=== PATIENT | female | born 1955 | race African-American/Black ===

== ENCOUNTER 2017-12-01 04:27 | Inpatient (IN) ==
[~2017-12-01 04:27] MED LIST: VANCOMYCIN INJ 1,000 MG in SODIUM CHLORIDE 0.9% 250 ML IV ONE; ceFAZolin 1,000 MG in SYRINGE 1 EACH IV ONE
[2017-12-01] MEDS ORDERED: ceFAZolin 1,000 MG in SYRINGE 1 EACH IV ONE (06:00)
[2017-12-01] MEDS ORDERED: VANCOMYCIN INJ 1,000 MG in SODIUM CHLORIDE 0.9% 250 ML IV ONE (06:00)
[2017-12-01] MEDS ORDERED: GABAPENTIN 400 MG CAPSULE PO ONE (06:21)
[2017-12-01] MEDS ORDERED: ACETAMINOPHEN 500 MG TABLET PO ONE (06:21)
[2017-12-01] MEDS ORDERED: LACTATED RINGERS 1,000 ML IV SCH (06:30)
[2017-12-01] MEDS ORDERED: GABAPENTIN 400 MG CAPSULE ONE (07:16)
[2017-12-01] MEDS ORDERED: VANCOMYCIN 1,000 MG VIAL ONE (07:16)
[2017-12-01] MEDS ORDERED: ACETAMINOPHEN 500 MG TABLET ONE (07:16)
[2017-12-01] MEDS ORDERED: ceFAZolin 1,000 MG VIAL ONE (07:16)
[2017-12-01] MEDS ORDERED: ROPIVACAINE 0.5% 30 ML VIAL ONE (07:20)
[2017-12-01] MEDS ORDERED: MIDAZOLAM 2 MG/2 ML VIAL ONE ×2 (07:20→10:15)
[2017-12-01] MEDS ORDERED: BUPIVACAINE SPINAL 0.75% 2 ML AMP SPINAL ONE (07:58)
[2017-12-01] MEDS ORDERED: TRANEXAMIC ACID 1,000 MG/10 ML VIAL ONE (08:46)
[2017-12-01] MEDS ORDERED: TEMAZEPAM 7.5 MG CAPSULE PO PRN (09:58)
[2017-12-01] MEDS ORDERED: MAGNESIUM HYDROXIDE SUSP 30 ML UDCUP PO PRN (09:58)
[2017-12-01] MEDS ORDERED: PROMETHAZINE 25 MG/1 ML VIAL IM PRN (09:58)
[2017-12-01] MEDS ORDERED: MORPHINE 4 MG/1 ML VIAL IV PRN (09:58)
[2017-12-01] MEDS ORDERED: LACTULOSE 20 GM/30 ML UDCUP PO PRN (09:58)
[2017-12-01] MEDS ORDERED: NALOXONE 0.4 MG/ML VIAL IV PRN (09:58)
[2017-12-01] MEDS ORDERED: diphenhydrAMINE CAP 25 MG CAPSULE PO PRN (09:58)
[2017-12-01] MEDS ORDERED: ONDANSETRON 4 MG/2 ML VIAL IV PRN (09:58)
[2017-12-01] MEDS ORDERED: BISACODYL 10 MG SUPP RECTAL PRN (09:58)
[2017-12-01] MEDS ORDERED: fentaNYL 100 MCG/2 ML VIAL ONE (10:15)
[2017-12-01] MEDS ORDERED: PHENYLEPHRINE 1 MG/10 ML SYRINGE IV ONE (10:16)
[2017-12-01] MEDS ORDERED: PROPOFOL 500 MG/50 ML BOTTLE IV ONE (10:16)
[2017-12-01] MEDS ORDERED: MORPHINE PCA 30 MG/30 ML SYRINGE IV ONE (10:22)
[2017-12-01] MEDS: MORPHINE PCA 30 MG/30 ML SYRINGE IV SCH (10:24)
[2017-12-01 11:43] LABS: HIV Antigen/Antibody Result Reactive (Nonreactive)
[2017-12-01] MEDS: LACTATED RINGERS 1,000 ML IV SCH (13:47)
[2017-12-01] MEDS: ceFAZolin 1,000 MG in SYRINGE 1 EACH IV SCH (16:13)
[2017-12-01] MEDS: DOCUSATE SODIUM 100 MG CAPSULE PO SCH (20:53)
[2017-12-01] MEDS: FONDAPARINUX 2.5 MG/0.5 ML SYRINGE SUBCUT SCH (20:54)
[2017-12-02] MEDS: ceFAZolin 1,000 MG in SYRINGE 1 EACH IV SCH
[2017-12-02 05:59] LABS: Basophils % 0.3 % (0.0-0.8); Eosinophils % 0.2 % (0.00-10.9); Hematocrit 34.8 VOL% (35.7-47.0); Hemoglobin 12.9 GM/DL (12.0-16.0); Immature Granulocytes % 0.4 %; Immature Granulocytes Absolute 0.04 #; Lymphocytes # 1.2 10*3/uL (1.4-4.0); Lymphocytes % 13.6 % (21.3-54.2); Mean Corpuscular HGB Conc 37.1 GM/DL (32-36); Mean Corpuscular Hemoglobin 33 PG (27-34); Monocytes # 0.9 10*3/uL (0.11-0.8); Monocytes % 10.2 % (1.7-12.7); Neutrophils # 6.7 10*3/uL (1.4-7.4); Neutrophils % 75.3 % (38.7-73.9); Platelet Count 162 T/CUMM (130-400); Red Blood Count 3.91 MC/CUMM (3.8-5.5); Red Cell Distribution Width 12.5 % (9.3-17.3); White Blood Count 8.9 T/CUMM (4-12)
[2017-12-02 06:31] LABS: Osmolality,Calculated 275.7 MOS/KG (273-304); Potassium 4.3 MMOL/L (3.5-5.1)
[2017-12-02] MEDS: DOCUSATE SODIUM 100 MG CAPSULE PO SCH ×2 (08:44→22:47)
[2017-12-02] MEDS ORDERED: ACETAMINOPHEN 325 MG TABLET PO PRN (10:00)
[2017-12-02] MEDS: MORPHINE PCA 30 MG/30 ML SYRINGE IV SCH (16:01)
[2017-12-02] MEDS: LACTATED RINGERS 1,000 ML IV SCH (17:48)
[2017-12-02] MEDS: FONDAPARINUX 2.5 MG/0.5 ML SYRINGE SUBCUT SCH (22:47)
[2017-12-03] MEDS: LACTATED RINGERS 1,000 ML IV SCH (07:00)
[2017-12-03] MEDS: DOCUSATE SODIUM 100 MG CAPSULE PO SCH ×2 (08:57→20:34)
[2017-12-03] MEDS: FONDAPARINUX 2.5 MG/0.5 ML SYRINGE SUBCUT SCH (20:34)
[2017-12-04] MEDS: DOCUSATE SODIUM 100 MG CAPSULE PO SCH ×2 (08:42→20:40)
[2017-12-04 19:00] LABS: % CD4 (T Cells) 27 % (32-64); % CD8 (T Cells) 41 % (11-40); 4/8 Ratio 0.7 (>=0.9)
[2017-12-04] MEDS: FONDAPARINUX 2.5 MG/0.5 ML SYRINGE SUBCUT SCH (20:40)
[2017-12-05] MEDS: DOCUSATE SODIUM 100 MG CAPSULE PO SCH (10:55)
[2017-12-05 12:23] VITALS: BP 121/68
== END 2017-12-05 14:25 | disposition home health service (06) | DRG 470 ==
LOC: N.OR 04:27 → N.SDSINP 04:29 → N.3E 08:52
PROVIDERS: ADMIT Orthopaedic Surgery; ATTEND Orthopaedic Surgery